=== PATIENT | male | born 1980 | race American Indian/Alaskan Native ===

== ENCOUNTER 2017-03-14 12:50 | Emergency (ER) | payer SELFPAY ==
[2017-03-14 13:11] VITALS: BP 135/73; PULSE 64; RESP 20; TEMP 97.9; O2SAT 96
--- NOTE | 2017-03-14 13:28 | C.PDOC ---
History Of Present Illness 37 y/o male presents to ED for evaluation of left lower back pain gradually developed for 2 weeks. Patient admits he works at [employer] and does heavy lifting, reports he lifted heavy box yesterday which made pain worse. Patient describes pain as left sided, localized and worse with movement. Patient denies known direct trauma or injury, fever, chills, recent illness, sore throat, CP, SOB, abdominal pain, nausea, vomiting, bowel/bladder incontinence, saddle anesthesia, denies weakness, sensory or vascular deficits to B/L LEs, denies any other complaints at this time. Ambulate to ED for evaluation, not in any apparent distress. Time Seen by Provider: 03/14/17 13:17 Chief Complaint (Nursing): Back Pain History Per: Patient History/Exam Limitations: no limitations Onset/Duration Of Symptoms: Days Current Symptoms Are (Timing): Still Present Quality Of Discomfort: "Pain" Exacerbating Factor(s): Movement Past Medical History Reviewed: Historical Data, Nursing Documentation, Vital Signs Vital Signs: Last Vital Signs Temp 97.9 F 03/14/17 13:07 Pulse 64 03/14/17 13:07 Resp 20 03/14/17 13:07 BP 135/73 03/14/17 13:07 Pulse Ox 96 03/14/17 13:35 - Medical History PMH: No Chronic Diseases, Seizures (last seizure 20yrs ago) Surgical History: No Surg Hx Family History: States: No Known Family Hx - Social History Hx Alcohol Use: No Hx Substance Use: No - Immunization History Hx Influenza Vaccination: No Review Of Systems Constitutional: Negative for: Fever, Chills Gastrointestinal: Negative for: Nausea, Vomiting, Abdominal Pain Genitourinary: Negative for: Dysuria, Hematuria Musculoskeletal: Positive for: Back Pain. Negative for: Neck Pain Skin: Negative for: Rash Neurological: Negative for: Weakness, Numbness Physical Exam - Physical Exam Appears: Well, Non-toxic, No Acute Distress Skin: Normal Color, Warm, Dry, No Rash Eye(s): bilateral: PERRL Nose: No Flaring, No Discharge Oral Mucosa: Moist Throat: No Erythema, No Exudate, No Drooling Neck: Trachea Midline, Supple Cardiovascular: Rhythm Regular Respiratory: No Decreased Breath Sounds, No Accessory Muscle Use, No Stridor, No Wheezing Gastrointestinal/Abdominal: Soft, No Tenderness, No Distention, No Guarding Back: No CVA Tenderness, No Vertebral Tenderness, Muscle Spasm (Left lumbar paraspinal, Left flank. No skin changes, no palpable deofmrity.), Paraspinal Tenderness (Left sided lumbar with moderate muscle spasm.) Extremity: Normal ROM, No Pedal Edema, No Calf Tenderness, No Deformity Neurological/Psych: Oriented x3, Normal Speech, Normal Motor, Normal Sensation, Normal Reflexes ED Course And Treatment O2 Sat by Pulse Oximetry: 96 (ra) Pulse Ox Interpretation: Normal Progress Note: On re-evaluation, pt is afebrile, hemodynamicaly stable. Non- toxic. Ambulatory in ED with stable gait. ENT: no acute findings. neck: Supple. Abd: benign. Neuorlogicaly intact. NO evidence of trauma, no incontinence or saddle anesthesia. NO emergent need for imaging or further study. Pt has clinical findings c/w Left lower back strain/muscle spasm. Pt advised. re.f to f/u with PMD, PM in 2-3 days for re-eavl. return to ED if any worsening ro new changes Disposition Counseled Patient/Family Regarding: Diagnosis, Need For Followup, Rx Given - Disposition Referrals: [facility] [Outside] [facility] [Provider Group] [facility] [Provider Group] Disposition: HOME/ ROUTINE Disposition Time: 13:28 Condition: STABLE Additional Instructions: LIGHT DUTY TO LOWER BACK, AVOID HEAVY LIFTING OR BENDING FOR 1-2 WEEKS TAKE MEDICATION PRESCRIBED NEED FOLLOW UP WITH PMD AND PAIN MANAGEMENT IN 2-3 DAYS FOR RE-EVALUATION. RETURN TO ED IF ANY WORSENING OR NEW CHANGES. 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 - Scribe Statement The provider has reviewed the documentation as recorded by the Fermin Orozco All medical record entries made by the Fermin were at my direction and personally dictated by me. I have reviewed the chart and agree that the record accurately reflects my personal performance of the history, physical exam, medical decision making, and the department course for this patient. I have also personally directed, reviewed, and agree with the discharge instructions and disposition.
== END 2017-03-14 13:55 | disposition home or self-care (01) ==
LOC: C.ER 12:50
DX: S33.5XXA Sprain of ligaments of lumbar spine, initial encounter (principal); X50.0XXA Overexertion from strenuous movement or load, initial encounter; Y92.89 Other specified places as the place of occurrence of the external cause; Y99.0 Civilian activity done for income or pay
CPT/HCPCS: 96372; 99283; J2930

== ENCOUNTER 2017-03-17 15:20 | Emergency (ER) | payer SELFPAY ==
[2017-03-17 15:33] VITALS: PULSE 74; RESP 18; TEMP 97.8; O2SAT 97
--- NOTE | 2017-03-17 15:39 | C.PDOC ---
History Of Present Illness 37 yr old male presents to the ER with complaints of low back pain for the past 1 week. Patient reports he was seen in [place] [facility] 3 days ago and was sent home with prescriptions. Patient states the pain improved, but is still there and is here for follow up. Denies trauma, injury, chest pain, dysuria, hematuria, bowel or bladder incontinence, weakness or numbness. Time Seen by Provider: 03/17/17 15:35 Chief Complaint (Nursing): Back Pain History Per: Patient History/Exam Limitations: no limitations Onset/Duration Of Symptoms: Days (3) Pain Scale Rating Of: 4 Associated Symptoms: denies: Incontinence, New Weakness, New Numbness Exacerbating Factor(s): Movement Recent travel outside of the [place]: No Past Medical History Reviewed: Historical Data, Nursing Documentation, Vital Signs Vital Signs: Last Vital Signs Temp 97.8 F 03/17/17 15:31 Pulse 74 03/17/17 16:55 Resp 18 03/17/17 16:55 BP 115/76 03/17/17 16:55 Pulse Ox 97 03/17/17 18:28 - Medical History PMH: Seizures (last seizure 20yrs ago) Family History: States: No Known Family Hx - Social History Hx Alcohol Use: No Hx Substance Use: No - Immunization History Hx Influenza Vaccination: No Review Of Systems Except As Marked, All Systems Reviewed And Found Negative. Cardiovascular: Negative for: Chest Pain Genitourinary: Negative for: Dysuria, Incontinence, Hematuria Musculoskeletal: Positive for: Back Pain (Low back pain) Neurological: Negative for: Weakness, Numbness Physical Exam - Physical Exam Appears: Non-toxic, No Acute Distress Skin: Warm, Dry, No Rash Head: Atraumatic, Normacephalic Eye(s): bilateral: Normal Inspection Oral Mucosa: Moist Neck: Normal ROM Cardiovascular: Rhythm Regular, No Friction Rub, No Murmur Respiratory: Normal Breath Sounds, No Rales, No Rhonchi, No Wheezing Gastrointestinal/Abdominal: Normal Exam, Soft, No Tenderness Back: No CVA Tenderness, No Vertebral Tenderness, Other ((+) Left paralumbar tenderness) Extremity: Normal ROM, No Swelling Neurological/Psych: Oriented x3, Normal Speech, Normal Motor Gait: Steady ED Course And Treatment O2 Sat by Pulse Oximetry: 97 (RA) Pulse Ox Interpretation: Normal Medical Decision Making Medical Decision Making: PLAN: * Naproxen PO NOTE: Old records reviewed, the patient was last seen on 03/14/17 for low back pain s/ p heavy lifting. Patient was given medications for pain and then discharged home. On re-exam, the patient reports improvement of symptoms. Lungs are CTA, heart is RRR, Abdomen is soft, non-tender and tolerating PO well. Ambulatory in the ED with steady gait. Follow up with the medical doctor within 1-2 days. Return if worsened. Disposition - Disposition Referrals: [facility] [Outside] Disposition: HOME/ ROUTINE Disposition Time: 16:45 Condition: GOOD Additional Instructions: Follow up with the medical doctor within 1-2 days, Return if worsened. 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 - Scribe Statement The provider has reviewed the documentation as recorded by the Scribe Veronika Gomez All medical record entries made by the Scribe were at my direction and personally dictated by me. I have reviewed the chart and agree that the record accurately reflects my personal performance of the history, physical exam, medical decision making, and the department course for this patient. I have also personally directed, reviewed, and agree with the discharge instructions and disposition.
[2017-03-17] MEDS ORDERED: Naproxen 550 mg Tab PO STA (16:18)
[2017-03-17] MEDS ORDERED: Naproxen 550 mg Tab PO ONE (16:25)
[2017-03-17 16:57] VITALS: BP 115/76
== END 2017-03-17 16:57 | disposition home or self-care (01) ==
LOC: C.ER 15:20
DX: M54.30 Sciatica, unspecified side (principal); S33.5XXD Sprain of ligaments of lumbar spine, subsequent encounter; X50.0XXD Overexertion from strenuous movement or load, subsequent encounter